=== PATIENT | female | born 1985 | race Caucasian/White ===

== ENCOUNTER 2016-08-15 21:25 | Emergency (ER) | payer SELFPAY ==
--- NOTE | 2016-08-15 22:24 | ER NURSING DOCUMENTATION ---
Nurse's Notes [facility] Name:Chanell Lopez Age:31 yrs Sex:Female :1985 Arrival Date:08/15/2016 Time:21:25 Bed1 Private MD:Physician, No Diagnosis:Dyshidrosis Presentation: 08/15 21:58 Presenting complaint: Patient states: rash to palm of hands and fingers since 07/18/16. sj Using a potent steroid cream but stopped because she believed it was causing it to spread. C/o burning, itching, pain. Transition of care: Home. Onset: The symptoms/episode began/occurred last month. Anaphylaxis evaluation, no signs or symptoms of anaphylaxis were noted. Notified ED Physician of patient's arrival and CC Dr. Mendes notified. 21:58 Acuity: DEISY 4 sj 21:58 Method Of Arrival: Private Vehicle sj Triage Assessment: 22:01 General: Appears uncomfortable, Behavior is cooperative, pleasant. Pain: Complains of sj pain in palms of both hands and fingers. Neuro: No deficits noted. Level of Consciousness is awake, alert, Oriented to person, place, time, event. Cardiovascular: Capillary refill < 3 seconds. Respiratory: Respiratory effort is even, unlabored, Respiratory pattern is regular, symmetrical. Derm: Skin is dry, Rash noted that is macular, itchy, raised. Historical: - Allergies: SULFA (SULFONAMIDES); Silvadene; - Home Meds: 1. steroid cream - PMHx: None; - PSHx: Tonsillectomy; - Tetanus: < 10 years. - Ebola Screening: : Patient negative for fever greater than or equal to 101.5 degrees Fahrenheit, and additional compatible Ebola Virus Disease symptoms. Patient denies exposure to infectious person. Patient denies travel to an Ebola-affected area in the 21 days before illness onset. No symptoms or risks identified at this time. . - Immunization history: Flu Vaccine None. - Social history: Smoking status: Patient uses tobacco products, current every day smoker. Patient uses marijuana Patient/guardian denies using alcohol. Screenin:03 Infectious Disease Risk None. Abuse screen: Denies threats or abuse. Denies injuries sj from another. Nutritional screening: No deficits noted. Vital Signs: 21:31 BP 185 / 88; Pulse 105; Resp 20; Temp 98.3(O); Pulse Ox 98% on R/A; Weight 169.64 kg arc (R); Height 6 ft. 0 in. (182.88 cm) (R); Pain 7/10; 22:22 BP 165 / 101; Pulse 94; Resp 14; Pulse Ox 98% on R/A; sj 21:31 Body Mass Index 50.72 (169.64 kg, 182.88 cm) arc ED Course: 21:29 Patient arrived in ED. ma1 21:29 Physician, Blanche is Private Physician. ma1 21:58 Lizzie Peterson is Primary Nurse. sj 22:00 Triage completed. sj 22:04 Valuables Remains with patient Patient has correct armband on for positive sj identification. Bed in low position. Call light in reach. 22:05 Boyd Mendes MD is Attending Physician. tl1 22:05 Tamanna Palomino MD is Referral Physician. tl1 Administered Medications: 22:14 Drug: predniSONE 60 mg; Route: PO; bw2 22:21 Follow up: Response: No adverse reaction Outcome: 22:07 Discharge ordered by . tl1 22:22 Discharged to home ambulatory. sj 22:22 Condition: unchanged 22:22 Instructed on discharge instructions, follow up and referral plans. medication usage, Demonstrated understanding of instructions, medications, Prescriptions given X 1. 22:23 Patient left the ED. Signatures: Boyd Mendes MD MD tl1 Mickie Gordon, [facility] Lizzie Peterson Beth 2 Kaelyn Santiago [facility]
--- NOTE | 2016-08-17 22:24 | ER PHYSICIAN DOCUMENTATION ---
Physician Documentation [facility] Name:Chanell Lopez Age:31 yrs Sex:Female :1985 Arrival Date:08/15/2016 Time:21:25 Bed1 Private MD:Physician, No ED Boyd Gordon Disposition: 08/17 12:30 Chart complete. tl1 Disposition: 08/15/16 22:07 Discharged to Home/Self Care. Impression: Dyshidrosis. - Condition is Good. - Prescriptions for Prednisone 20 mg Oral - take 3 tablet by ORAL route once daily for 7 days; 21 tablet. - Medical Reconciliation form form. - Follow up: Tamanna Palomino MD; When: 2 - 3 days; Reason: Recheck today's complaints, Continuance of care. - Problem is new. - Symptoms are unchanged. HPI: 08/15 21:40 This 31 yrs old Female presents to ER via Private Vehicle with complaints of tl1 Rash - BOTH HANDS. 21:40 The rash is located on the Bilateral palms and fingers.. 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 It has not seemed to work and the rash is getting worse and uncomfortable. 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 Historical: - Allergies: SULFA (SULFONAMIDES); Silvadene; - Home Meds: 1. steroid cream - PMHx: None; - PSHx: Tonsillectomy; - Tetanus: < 10 years. - Ebola Screening: : Patient negative for fever greater than or equal to 101.5 degrees Fahrenheit, and additional compatible Ebola Virus Disease symptoms. Patient denies exposure to infectious person. Patient denies travel to an Ebola-affected area in the 21 days before illness onset. No symptoms or risks identified at this time. . - Immunization history: Flu Vaccine None. - Social history: Smoking status: Patient uses tobacco products, current every day smoker. Patient uses marijuana Patient/guardian denies using alcohol. ROS: 22:00 Skin: Positive for rash. tl1 22:00 All other systems are negative. Exam: 22:00 Skin: rash a moderate rash is noted, rash can be described as vesicular, weeping, tl1 chronic appearing, with central erythema, thickened. Vital Signs: 21:31 BP 185 / 88; Pulse 105; Resp 20; Temp 98.3(O); Pulse Ox 98% on R/A; Weight 169.64 kg arc (R); Height 6 ft. 0 in. (182.88 cm) (R); Pain 7/10; 22:22 BP 165 / 101; Pulse 94; Resp 14; Pulse Ox 98% on R/A; sj 21:31 Body Mass Index 50.72 (169.64 kg, 182.88 cm) arc MDM: 21:32 Patient medically screened. tl1 22:00 Data reviewed: and as a result, I will discharge patient, administer steroids. tl1 Counseling: I had a detailed discussion with the patient and/or guardian regarding: the historical points, exam findings, and any diagnostic results supporting the discharge/admit diagnosis, the need for outpatient follow up, a export agent, to return to the emergency department if symptoms worsen or persist or if there are any questions or concerns that arise at home. ED course: From what I could discern from our derm book ([facility]), this does look to me like dyshydrotic eczema, which apparently is difficult to treat. It apparently sometimes responds to oral steroids, and after some discussion with Chanell, we agreed to give that a try until she can f/u with derm to talk over other potential treatments such as PUVA. She should return here if worse and try to f/u with derm KACEY. I GAVE her the number for Dr Palomino.. Dispensed Medications: 22:14 Drug: predniSONE 60 mg; Route: PO; bw2 22:21 Follow up: Response: No adverse reaction sj Signatures: Boyd Mendes MD MD tl1 Lizzie Peterson Beth bw2
== END 2016-08-15 22:24 | disposition home or self-care (01) ==
LOC: ER 21:25
DX: L30.1 Dyshidrosis [pompholyx] (principal)
CPT/HCPCS: 99283